=== PATIENT | female | born 1995 | race Caucasian/White ===

== ENCOUNTER → 2021-07-20 | Outpatient (CLI) | payer BC, OTHER ==
--- NOTE | 2021-07-20 13:19 | MR ---
EXAMINATION TYPE: MR knee LT wo con DATE OF EXAM: 07/20/2021 COMPARISON: None HISTORY: M25.562 L knee pain. Pain and locking of left knee TECHNIQUE: Multiplanar, multisequence imaging of the left knee is performed without IV contrast. FINDINGS: There is motion on the exam. MEDIAL MENISCUS: Anterior and posterior horns are intact without tear. LATERAL MENISCUS: Anterior and posterior horns are intact without tear. CRUCIATE LIGAMENTS: The anterior and posterior cruciate ligaments are intact and unremarkable. COLLATERAL LIGAMENTS: The medial collateral ligament and lateral collateral ligament complex are inta ct and unremarkable. EXTENSOR MECHANISM: Visualized quadriceps and patellar tendons are intact. EFFUSION: Minimal joint effusion is present POPLITEAL CYST: Minimal fluid signal noted consistent with minute popliteal/jacques cyst. TRICOMPARTMENT SPACES: Maintained. CARTILAGE: Within normal limits for the limitations of the exam BONE MARROW SIGNAL: No focal abnormal marrow signal is appreciated. OTHER: Accessory head of the gastrocnemius is present. Anterior suprapatellar fat pad impingement is suspected, correlate, there is abnormal signal noted on T2 and proton density sequences are IMPRESSION: Anterior suprapatellar fat pad impingement syndrome is within the differential. Anatomic variant of g astrocnemius.
== END | disposition home or self-care (01) ==
LOC: RADMRIMAIN 10:12
PROVIDERS: ATTEND Orthopaedic Surgery
DX: M23.8X2 Other internal derangements of left knee (principal); M23.304 Other meniscus derangements, unspecified medial meniscus, left knee